=== PATIENT | male | born 1990 | race African-American/Black ===

== ENCOUNTER 2018-04-17 14:32 | Emergency (ER) | payer OTHER ==
[~2018-04-17] VITALS: Ht 180.3 cm; Wt 65.9 kg
[2018-04-17 15:37] LABS: HEMATOCRIT 40.1 % (38.0-50.0); HEMOGLOBIN 13.1 G/DL (12.5-16.6); MCH 27.5 PG (29.0-34.0); MCHC 32.7 G/DL (30.0-36.0); MCV 84.1 FL (86-99); PLATELET COUNT 209 K/uL (156-360); RBC DIS.WIDTH-CV 12.5 % (11.8-14.6); RBC DIS.WIDTH-SD 37.8 % (39-53); RED BLOOD COUNT 4.77 M/uL (4.00-5.50); WHITE BLOOD COUNT 4.2 K/uL (4.1-10.2)
[2018-04-17 15:45] LABS: ALBUMIN 4.5 g/dL (3.2-4.8); CHLORIDE 109 mEq/L (99-109); SODIUM 143 mEq/L (136-147)
[2018-04-17 15:47] LABS: GLUCOSE 91 mg/dL (70-99); TOTAL PROTEIN 7.5 g/dL (6.4-8.3)
[2018-04-17 15:49] LABS: TOTAL BILIRUBIN 0.6 mg/dL (0.0-1.0)
[2018-04-17 15:50] LABS: SERUM ETHYL ALCOHOL < 10 mg/dL
[2018-04-17 15:51] LABS: ALKALINE PHOSPHATASE 47 IU/L (3-129)
[2018-04-17 15:52] LABS: AST (GOT) 10 IU/L (2-34); UREA NITROGEN (BUN) 6 mg/dL (9-23)
[2018-04-17 15:54] LABS: ALT (GPT) 7 IU/L (3-49)
[2018-04-17 15:58] LABS: GFR ESTIMATE (CALCULATED) > 59 mL/min/ (58.99-99999)
[2018-04-17 16:17] LABS: ANTI-HIV (AIDS STAT TEST) NONREACTIVE
[2018-04-17 17:42] LABS: SOURCE URINE
[2018-04-17 17:46] LABS: APPEARANCE CLEAR ((CLEAR)); BILIRUBIN NEGATIVE; BLOOD NEGATIVE; COLOR STRAW ((YELLOW)); GLUCOSE (STRIP) NEGATIVE; KETONES NEGATIVE; LEUKOCYTES NEGATIVE; NITRITE NEGATIVE; PROTEIN (STRIP) NEGATIVE; SPECIFIC GRAVITY 1.009 (1.000-1.030); UCUL ADDED? NO; UROBILINOGEN 0.2 MG/DL (0.2-1.0)
[2018-04-17 17:55] VITALS: BP 113/68
[2018-04-17 17:56] LABS: AMPHETAMINE NEGATIVE (500 ng/mL); BARBITURATES NEGATIVE (200 ng/mL); BENZODIAZEPINES NEGATIVE (150 ng/mL); BUPRENORPHINE NEGATIVE (10 ng/mL); COCAINE NEGATIVE (150 ng/mL); METHADONE NEGATIVE (200 ng/mL); METHAMPHETAMINE NEGATIVE (500 ng/mL); OPIATES (MORPHINE) NEGATIVE (100 ng/mL); OXYCODONE NEGATIVE (100 ng/mL); PHENCYCLIDINE NEGATIVE (25 ng/mL); PROPOXYPHENE NEGATIVE (300 ng/mL); THC CANNABINOIDS NEGATIVE (50 ng/mL); TRICYCLIC ANTIDEPRESSANTS NEGATIVE (300 ng/mL)
[2018-04-18 11:39] LABS: HEPATITIS B SURFACE ANTIGEN Nonreactive; HEPATITIS C ANTIBODY Nonreactive
[2018-04-18 11:40] LABS: ANTI-HEPATITIS A VIRUS (IGM) Nonreactive
[2018-04-18 11:41] LABS: ANTI-HEPATITIS B CORE (IGM) Nonreactive
[2018-04-18 11:42] LABS: ANTI-HEPATITIS B CORE (IGM) Nonreactive; HEPATITIS B SURFACE ANTIGEN Nonreactive
[2018-04-18 11:43] LABS: HIV-1/2 AB/AG COMBO Nonreactive
[2018-04-19 11:47] LABS: TREPONEMA ANTIBODY NEGATIVE (NEGATIVE)
[2018-04-19 13:29] LABS: CHLAMYDIA TRACHOMATIS NEGATIVE; NEISSERIA GONORRHOEAE NEGATIVE
[2018-04-20 19:10] LABS: HCV RNA (IU/mL) <15 IU/mL (())
[2018-04-21 09:58] LABS: HCV RNA (LOG IU/mL) <1.18 (())
== END 2018-04-17 17:55 ==
LOC: EME 14:32
PROVIDERS: Emergency Medicine
DX: T76.21XA Adult sexual abuse, suspected, initial encounter (principal); Y92.143 Cell of prison as the place of occurrence of the external cause; J45.909 Unspecified asthma, uncomplicated; F31.9 Bipolar disorder, unspecified; F17.200 Nicotine dependence, unspecified, uncomplicated
CPT/HCPCS: 80053; 80074; 81003; 85027; 86705; 86780; 87340; 87389; 87491; 87522 90; 87591; 99281; 99285; G0480